=== PATIENT | male | born 1980 | race Caucasian/White ===

== ENCOUNTER → 2017-02-17 | Outpatient (CLI) | payer OTHER ==
[~2017-02-17] MED LIST: CEFD300C PO; PRED20TA PO
[2017-02-17 13:40] VITALS: BP 130/85
--- NOTE | 2017-02-17 13:40 | Urgent Care T Sheet Gen (E) ---
Intake General Temperature (Fahrenheit): 97.5 (took ibuprofen 1 hour ago) Pulse: 90 Blood Pressure Systolic: 130 Blood Pressure Diastolic: 85 Respirations: 18 SPO2: 96 Description of Symptoms Patient presents with illness since Friday. Notes ST, CORRAL, fever up to 101 and malaise. No cough or congestion. Been taking Ibuprofen which helps. Respiratory Constitutional Symptoms: Fever Malaise EENTM: Throat pain Throat swelling Respiratory: No symptoms reported Cardiovascular: No symptoms reported Gastrointestinal/Abdominal: No symptoms reported All Other Systems Reviewed Remaining Systems: All other systems reviewed with negative findings Physical Exam Physical Exam General Appearance: WD/WN No apparent distress Eyes, Ears, Nose, Throat Ex: TMs normal Pharyngeal erythema (exudate is seen. very enlarged tonsils, R larger than L) Other (nose is clear) Neck Exam: Supple Lymphadenopathy (anterior cervical) Respiratory Exam: Lungs clear Normal breath sounds Cardiovascular Exam: Regular rate, rhythm Progress/Orders Lab Results Labs Results: Rapid Strep (positive) Departure Urgent Care Impression Impression: Primary Impression: Strep pharyngitis Departure Disposition: 01 HOME OR SELF-CARE Condition: Stable Additional Instructions: Rapid strep was positive I have started him on Omnicef for treatment and Prednisone for inflammation/ swelling. No NSAIDS while on steroid Return as needed Patient understands DC instructions. All questions were answered. Scripts Prednisone 20 Mg [id number] Mg PO DAILY #6 TAB Prov:RUSLAN LIZAMA 02/17/17 Cefdinir 300 Mg [id number] Mg PO BID #14 CAP Prov:RUSLAN LIZAMA 02/17/17 End of report . RUSLAN LIAZMA February 17, 2017 13:40
== END ==
LOC: MHUC 13:18
PROVIDERS: ATTEND Physician Assistant
DX: J02.0 Streptococcal pharyngitis (principal)
CPT/HCPCS: 87880; 99213